=== PATIENT | male | born 1950 | race Caucasian/White ===

== ENCOUNTER 2017-08-22 06:47 | Inpatient (IN) | payer MEDICAID ==
[2017-08-19 08:49] LABS: BASOPHILS # (AUTO) 0.03 x10^3/uL (0-0.1); BASOPHILS % (AUTO) 1 % (0-1); EOSINOPHILS # (AUTO) 0.44 x10^3/uL (0-0.4); EOSINOPHILS % (AUTO) 7 % (1-7); LYMPHOCYTES # (AUTO) 1.88 x10^3/uL (1-3.4); LYMPHOCYTES % (AUTO) 31 % (22-44); MD NO; MEAN CORPUSCULAR HEMOGLOBIN 34.3 pg (27.5-34.5); MEAN CORPUSCULAR HGB CONC 33.9 g/dL (33.2-36.2); MEAN CORPUSCULAR VOLUME 100.9 fL (81-97); MEAN PLATELET VOLUME 7.8 fL (7.4-10.4); MONOCYTES # (AUTO) 0.48 x10^3/uL (0.2-0.8); MONOCYTES % (AUTO) 8 % (2-9); NEUTROPHILS # (AUTO) 3.33 x10^3/uL (1.8-6.8); NEUTROPHILS % (AUTO) 54 % (42-75); PLATELET COUNT 294 x10^3/uL (130-400); RED BLOOD COUNT 4.79 x10^6/uL (4.38-5.82); RED CELL DISTRIBUTION WIDTH 13.2 % (9.4-14.8)
[2017-08-19 09:02] LABS: ALANINE AMINOTRANSFERASE 28 U/L (12-78); ALBUMIN 3.8 g/dL (3.4-5.0); ANION GAP 4 mmol/L (5-15); CALCIUM 8.5 mg/dL (8.5-10.1); CHLORIDE 104 mmol/L (98-107); CREATININE 1.02 mg/dL (0.7-1.3)
[2017-08-19 09:04] LABS: ALKALINE PHOSPHATASE 91 U/L (45-117); BILIRUBIN,TOTAL 0.5 mg/dL (0.2-1.0); TOTAL PROTEIN 7.9 g/dL (6.4-8.2)
[2017-08-19 09:12] LABS: MICROSCOPIC NOT IND
[2017-08-19 09:17] LABS: CULTURE INDICATED? NO
[~2017-08-22] VITALS: Ht 175.3 cm; Wt 115.7 kg
[~2017-08-22 06:47] MED LIST: ALLO300T PO; ASPI-650 PO; BENA40TA2 PO; MELO15TA24 PO; NAPR220C2 PO
[2017-08-22] MEDS ORDERED: LACTATED RINGERS 1,000 ML IV SCH (07:26)
[2017-08-22] MEDS ORDERED: VANCOMYCIN PMX 1GM/200ML 200 ML IV STA (07:44)
[2017-08-22 07:53] VITALS: BP 147/87
[2017-08-22] MEDS ORDERED: ACETAMINOPHEN 500 MG TABLET PO ONE (08:30)
[2017-08-22] MEDS ORDERED: FAMOTIDINE 20 MG TABLET PO ONE (08:30)
[2017-08-22] MEDS ORDERED: OXYcodone IR 5MG TABLET PO ONE (08:30)
[2017-08-22] MEDS ORDERED: ONDANSETRON ODT 8 MG PO ONE (08:30)
[2017-08-22] MEDS ORDERED: GABAPENTIN 300 MG CAPSULE PO ONE (08:30)
[2017-08-22] MEDS ORDERED: FENTANYL PF 100 MCG/2ML ONE ×2 (08:44→10:51)
[2017-08-22] MEDS ORDERED: MIDAZOLAM 1 MG/ML, 2ML ONE (08:44)
[2017-08-22] MEDS ORDERED: TRANEXAMIC ACID 100 MG/ML, 10ML ONE (09:21)
[2017-08-22] MEDS ORDERED: KETOROLAC 60 MG/2 ML ONE (09:21)
[2017-08-22] MEDS ORDERED: ROPIvacaine/PF 0.2%, 20 ML ONE (09:22)
[2017-08-22] MEDS ORDERED: ROPivacaine/PF 0.2%, 10 ML ONE (09:22)
[2017-08-22] MEDS ORDERED: morphine SULFATE/PF 1 MG/ML, 10ML ONE (09:22)
[2017-08-22] MEDS ORDERED: BACITRACIN 50,000 UNIT ONE (09:22)
[2017-08-22] MEDS ORDERED: EPINEPHRINE 1 MG/ML, 1ML ONE (09:22)
[2017-08-22] MEDS ORDERED: SODIUM CHLORIDE 0.9% 100 ML ONE (09:22)
[2017-08-22] MEDS ORDERED: ACETAMINOPHEN 325 MG TABLET PO PRN (09:30)
[2017-08-22] MEDS ORDERED: ZOLPIDEM 5MG TABLET PO PRN (09:30)
[2017-08-22] MEDS ORDERED: TRANEXAMIC ACID 1,000 MG in SODIUM CHLORIDE 0.9% 100 ML IV ONE ×2 (09:30→15:00)
[2017-08-22] MEDS ORDERED: CEFAZOLIN PMX 1GM/50ML 50 ML IVPB SCH (09:30)
[2017-08-22] MEDS ORDERED: morphine SULFATE 10 MG/ML, 1ML IVPush PRN (09:30)
[2017-08-22] MEDS ORDERED: LORazepam 2 MG/ML, 1ML IVPush PRN (09:30)
[2017-08-22] MEDS ORDERED: DIPHENHYDRAMINE 50 MG CAPSULE PO PRN (09:30)
[2017-08-22] MEDS ORDERED: VANCOMYCIN PMX 1GM/200ML 200 ML IVPB ONE (09:30)
[2017-08-22] MEDS ORDERED: hydrALAzine 20 MG/ML, 1ML ONE (09:39)
[2017-08-22] MEDS ORDERED: EPHEDRINE 50 MG/ML, 1ML IVPush PRN (10:30)
[2017-08-22] MEDS ORDERED: LABETALOL 5MG/ML, 20ML IV PRN (10:30)
[2017-08-22] MEDS ORDERED: HALOPERIDOL 5 MG/ML IV PRN (10:30)
[2017-08-22] MEDS ORDERED: hydrALAzine 20 MG/ML, 1ML IV PRN (10:30)
[2017-08-22] MEDS ORDERED: HYDROcodone/APAP 7.5-325MG/15ML UDC PO PRN (10:30)
[2017-08-22] MEDS ORDERED: PROMETHAZINE 25 MG/ML, 1ML IV PRN (10:30)
[2017-08-22] MEDS ORDERED: HYDROmorphone 1 MG/ML, 1ML IV PRN (10:30)
[2017-08-22] MEDS ORDERED: MEPERIDINE/PF 25MG/0.5ML IVPush PRN (10:30)
[2017-08-22] MEDS ORDERED: FENTANYL PF 100 MCG/2ML IV PRN (10:30)
[2017-08-22] MEDS ORDERED: MIDAZOLAM 1 MG/ML, 2ML IV PRN (10:30)
[2017-08-22] MEDS ORDERED: ALBUTEROL SULFATE 2.5 MG/3 ML NPPB PRN (10:30)
[2017-08-22] MEDS ORDERED: OXYcodone 5 MG/5 ML ORAL.SOL UDC PO PRN (10:30)
[2017-08-22] MEDS ORDERED: ONDANSETRON 2MG/ML, 2ML ONE (10:51)
[2017-08-22] MEDS ORDERED: PROPOFOL 10 MG/ML, 20ML ONE (10:51)
[2017-08-22] MEDS ORDERED: CEFAZOLIN 1,000 MG ONE (10:51)
[2017-08-22] MEDS ORDERED: DEXAMETHASONE 4 MG/ML, 1ML ONE (10:51)
[2017-08-22] MEDS: D5%-0.45% NACL 1,000 ML IV SCH ×3 (13:19→21:14)
[2017-08-22] MEDS: OXYcodone/APAP 7.5/325MG TABLET PO PRN ×3 (13:43→21:41)
[2017-08-22] MEDS ORDERED: TRANEXAMIC ACID 100 MG/ML, 10ML IV ONE (15:00)
[2017-08-22] MEDS ORDERED: NAPROXEN 250 MG TABLET PO PRN (16:00)
[2017-08-22] MEDS: ONDANSETRON 2MG/ML, 2ML IVPush PRN ×2 (17:01→21:41)
[2017-08-22] MEDS: CEFAZOLIN PMX 1GM/50ML 50 ML IVPB SCH (18:37)
[2017-08-22 20:16] VITALS: BP 138/74
[2017-08-23] MEDS: D5%-0.45% NACL 1,000 ML IV SCH ×3 (00:25→10:25)
[2017-08-23] MEDS: CEFAZOLIN PMX 1GM/50ML 50 ML IVPB SCH ×2 (01:35→11:18)
[2017-08-23] MEDS: OXYcodone/APAP 7.5/325MG TABLET PO PRN ×2 (01:39→06:12)
[2017-08-23 02:54] VITALS: BP 143/80
[2017-08-23 04:54] VITALS: BP 138/72
[2017-08-23] MEDS ORDERED: VANCOMYCIN 1.25 MG in SODIUM CHLORIDE 0.9% 250 ML IV SCH (08:00)
[2017-08-23] MEDS ORDERED: VANCOMYCIN PMX 1GM/200ML 200 ML IVPB ONE (08:00)
[2017-08-23] MEDS ORDERED: MELOXICAM 15 MG TABLET PO SCH (09:00)
[2017-08-23] MEDS ORDERED: BENAZEPRIL 20 MG TABLET PO SCH (09:00)
[2017-08-23] MEDS ORDERED: ALLOPURINOL 300 MG TABLET PO SCH (09:00)
[2017-08-23 09:17] VITALS: BP 121/65
[2017-08-23 14:10] VITALS: BP 157/56
[2017-08-23] MEDS ORDERED: ASPIRIN 325 MG TABLET EC PO SCH (17:00)
[2017-08-23] MEDS ORDERED: DOCUSATE 100 MG CAPSULE PO SCH (21:00)
== END 2017-08-23 15:11 | disposition home or self-care (01) | DRG 470 ==
LOC: OUT 06:47 → ORIP 09:25 → 4NOR 13:03 → DCLOUNGE 08-23 15:04
PROVIDERS: ADMIT Orthopaedic Surgery; ATTEND Orthopaedic Surgery
PROC: 0SRD0J9 Replacement of Left Knee Joint with Synthetic Substitute, Cemented, Open Approach (ICD-10-PCS; principal; 2017-08-22 09:00)
DX: M17.12 Unilateral primary osteoarthritis, left knee (principal)
CPT/HCPCS: 36415; 80053; 81003; 85018; 85025; 87081; 87806; 93005; C1713; J0171; J0690; J1100; J1885; J2250; J2274; J2405; J2704; J2795; J3010; J3370; Q0162; C1776; G0475; J0360; J2270; J7120

== ENCOUNTER 2017-08-23 17:36 | Emergency (ER) | payer MEDICAID ==
[~2017-08-23] VITALS: Ht 175.3 cm; Wt 120.0 kg
[2017-08-23 20:01] VITALS: BP 110/72
== END 2017-08-23 20:03 | disposition home or self-care (01) ==
LOC: ED 20:00
DX: M96.830 Postprocedural hemorrhage of a musculoskeletal structure following a musculoskeletal system procedure (principal); Z96.652 Presence of left artificial knee joint
CPT/HCPCS: 99283